=== PATIENT | male | born 1970 | race Caucasian/White ===

== ENCOUNTER 2019-08-23 03:17 | Emergency (ER) | payer SELFPAY ==
[~2019-08-23] VITALS: Ht 177.8 cm; Wt 100.0 kg
[2019-08-23 04:16] LABS: HEMATOCRIT 42.2 % (42.0-52.0); HEMOGLOBIN 14.3 g/dl (13.5-17.5); MEAN CORPUSCULAR HEMOGLOBIN 31.6 pg (27.0-33.0); MEAN CORPUSCULAR HGB CONC 33.9 g/dl (32.0-36.5); MEAN CORPUSCULAR VOLUME 93.4 fl (80.0-96.0); PLATELET COUNT, AUTOMATED 290 10^3/uL (150-450); RED BLOOD COUNT 4.52 10^6/uL (4.30-6.10); WHITE BLOOD COUNT 9.9 10^3/uL (4.0-10.0)
[2019-08-23 04:40] LABS: AMPHETAMINES LEVEL URINE NEGATIVE (NEGATIVE); BARBITURATES URINE NEGATIVE (NEGATIVE); BENZODIAZEPINES URINE NEGATIVE (NEGATIVE); CANNABINOIDS URINE NEGATIVE (NEGATIVE); COCAINE METABOLITE URINE NEGATIVE (NEGATIVE); METHADONE URINE NEGATIVE (NEGATIVE); OPIATES URINE NEGATIVE (NEGATIVE); PHENCYCLIDINE URINE NEGATIVE (NEGATIVE)
[2019-08-23 04:55] LABS: ACETAMINOPHEN LEVEL < 2.0 UG/ML (10.0-30.0); ALT/SGPT 19 U/L (12-78); BILIRUBIN,DIRECT 0.1 MG/DL (0.0-0.2); BILIRUBIN,TOTAL 0.2 MG/DL (0.2-1.0); BLOOD UREA NITROGEN 12 MG/DL (7-18); CARBON DIOXIDE LEVEL 26 MEQ/L (21-32); CHLORIDE LEVEL 97 MEQ/L (98-107); ETHYL ALCOHOL (ETHANOL) 0.199 % (0.000-0.010); GLOMERULAR FILTRATION RATE > 60.0 (>60); GLUCOSE, FASTING 106 MG/DL (70-100); POTASSIUM SERUM 3.9 MEQ/L (3.5-5.1); SALICYLATE LEVEL < 1.7 MG/DL (5.0-30.0); SODIUM LEVEL 133 MEQ/L (136-145); TOTAL PROTEIN 7.8 GM/DL (6.4-8.2)
[2019-08-23] MEDS ORDERED: LEVOTHYROXINE 150MCG TABLET (0.15MG) PO SCH (06:00)
[2019-08-23] MEDS ORDERED: FOLIC ACID 1 MG TAB PO SCH (09:00)
[2019-08-23] MEDS ORDERED: MULTIVITAMINS/MINERALS THERAP 1 TAB PO SCH (09:00)
[2019-08-23] MEDS ORDERED: LORazepam 2 MG TAB PO PRN (09:45)
[2019-08-23] MEDS ORDERED: PROZ10CA7 PO (10:01)
[2019-08-23] MEDS ORDERED: AMLO25TA PO (10:01)
[2019-08-23] MEDS ORDERED: LEVO50TA5 PO (10:01)
--- NOTE | 2019-08-23 11:43 | ECGEPIP ---
[facility] - ED Test Date: 2019-08-23 Pat Name: JOSE LUIS TIM Department: Room: - Gender: Male Eligibility Supervisor: : [id number] Requested By: Lakisha Martinez Order Number: [id number] Reading MD: Trevon Kirby Measurements Intervals Golden Rate: 70 P: 51 CT: 155 QRS: 51 QRSD: 104 T: 60 QT: 383 QTc: 413 Interpretive Statements SINUS RHYTHM Comparison tracing not on file Electronically Signed on 08-23-2019 11:43:36 EST by Trevon Kirby
[2019-08-23] MEDS ORDERED: LISI-538 PO (13:02)
[2019-08-23] MEDS ORDERED: LEVO150T7 PO (13:02)
[2019-08-23] MEDS ORDERED: FLUO20CA19 PO (13:02)
[2019-08-23] MEDS ORDERED: AMLO10TA5 PO (13:02)
[2019-08-23] MEDS ORDERED: amLODIPine 10 MG TAB PO ONE (15:00)
[2019-08-23] MEDS ORDERED: ACETAMINOPHEN TAB 650MG DOSE (2X325MG) PO ONE (15:00)
[2019-08-23] MEDS ORDERED: THIAMINE 100 MG TAB PO SCH (15:00)
[2019-08-23] MEDS ORDERED: lisinopriL 20 MG TAB PO ONE (15:00)
[2019-08-23] MEDS ORDERED: FLUoxetine 20 MG CAP PO ONE (15:00)
[2019-08-23 15:08] VITALS: BP 161/74
[2019-08-23 18:42] VITALS: BP 125/62
== END 2019-08-23 18:43 | disposition short-term general hospital (02) ==
LOC: M ED 03:17
DX: R45.851 Suicidal ideations (principal); F10.129 Alcohol abuse with intoxication, unspecified; Z79.899 Other long term (current) drug therapy
CPT/HCPCS: 80048; 80076; 80307; 84443; 85027; 93005; 99284; G0480